=== PATIENT | male | born 2000 | race Caucasian/White ===

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

== ENCOUNTER 2020-02-20 16:59 | Emergency (ER) | payer OTHER, MEDICAID ==
[~2020-02-20] VITALS: Ht 180.3 cm; Wt 69.8 kg
[2020-02-20] MEDS ORDERED: NAPROXEN500 MG PO (19:50)
[2020-02-20 19:52] VITALS: BP 127/82
== END 2020-02-20 19:57 | disposition home or self-care (01) | DRG 125 ==
LOC: ED 16:59
DX: S00.12XA Contusion of left eyelid and periocular area, initial encounter (principal); V58.5XXA Driver of pick-up truck or van injured in noncollision transport accident in traffic accident, initial encounter

== ENCOUNTER 2021-12-30 10:15 | Emergency (ER) | payer MEDICAID ==
[~2021-12-30] VITALS: Ht 185.4 cm; Wt 70.9 kg
[~2021-12-30 10:15] MED LIST changes: +NAPROXEN500 MG PO
[2021-12-30] MEDS ORDERED: EPIPEN 2-P0.3 MG/0.3 IM (13:30)
[2021-12-30] MEDS ORDERED: PREDNISONE50 MG PO (13:30)
[2021-12-30 13:31] VITALS: BP 100/68
== END 2021-12-30 13:50 | disposition home or self-care (01) ==
LOC: ED 10:15
DX: T78.40XA Allergy, unspecified, initial encounter (principal); X58.XXXA Exposure to other specified factors, initial encounter